=== PATIENT | male | born 1995 | race Caucasian/White ===

== ENCOUNTER 2020-09-08 13:16 | Emergency (ER) | payer MEDICAID ==
[~2020-09-08] VITALS: Ht 188 cm; Wt 116.0 kg
[~2020-09-08 13:16] MED LIST: ONDA4TAB12 PO
[2020-09-08] MEDS ORDERED: ondansetron/PF 4mg/2ml inj IV ONE (15:15)
[2020-09-08] MEDS ORDERED: normal saline 1000ml 1,000 ML IV ONE (15:15)
[2020-09-08] MEDS ORDERED: haloperidol lactate 5mg/ml inj IM ONE (15:20)
[2020-09-08 15:24] VITALS: BP 153/84
[2020-09-08] MEDS ORDERED: ONDA4TAB12 PO (15:51)
== END 2020-09-08 16:00 | disposition home or self-care (01) ==
LOC: ER 13:16
DX: F12.188 Cannabis abuse with other cannabis-induced disorder (principal); R11.2 Nausea with vomiting, unspecified; Z79.899 Other long term (current) drug therapy
CPT/HCPCS: 96372; 99283; J1630

== ENCOUNTER 2020-09-16 13:36 | Emergency (ER) | payer MEDICAID ==
[~2020-09-16] VITALS: Ht 188 cm; Wt 100.0 kg
[2020-09-16 13:57] VITALS: BP 161/90
[2020-09-16] MEDS ORDERED: PROC25SU31 RC (13:58)
--- NOTE | 2020-09-16 14:12 | NUR ---
PT SEEN AND TREATED BY MANUELA GOMES BEFORE NURSING ASSESSMENT DONE. PT DISCHARGED IN STABLE CONDIITON
== END 2020-09-16 14:24 | disposition home or self-care (01) ==
LOC: ER 13:36
DX: U07.1 COVID-19 (principal); F12.10 Cannabis abuse, uncomplicated; Z79.899 Other long term (current) drug therapy
CPT/HCPCS: 36415; 87635; 99283

== ENCOUNTER 2020-10-03 17:45 | Emergency (ER) | payer MEDICAID ==
[~2020-10-03] VITALS: Ht 188 cm; Wt 112.7 kg
[2020-10-03 17:47] VITALS: BP 135/82
--- NOTE | 2020-10-03 19:11 | NUR ---
lab informed me pt not in lobby
== END 2020-10-03 20:22 | disposition left against medical advice (07) ==
LOC: ER 17:45
DX: R11.10 Vomiting, unspecified (principal); Z53.21 Procedure and treatment not carried out due to patient leaving prior to being seen by health care provider

== ENCOUNTER 2020-10-06 08:13 | Emergency (ER) | payer MEDICAID ==
[~2020-10-06] VITALS: Ht 188 cm; Wt 104.5 kg
[2020-10-06 08:44] VITALS: BP 175/112
[2020-10-06] MEDS ORDERED: haloperidol lactate 5mg/ml inj IM ONE (08:55)
[2020-10-06] MEDS ORDERED: ondansetron 4mg rapidly disintigrating tab PO ONE (08:55)
[2020-10-06] MEDS ORDERED: proCHLORperazine 10 MG/2 ml inj IM ONE (08:55)
[2020-10-06 09:11] LABS: BASOPHILS % (AUTO) 0.4 % (0-1); EOSINOPHILS % (AUTO) 0.1 % (0-6); HEMATOCRIT 44.9 % (42.0-52.0); HEMOGLOBIN 15.4 g/dl (14.0-17.9); LYMPHOCYTES # (AUTO) 0.8 X10'3 (1.1-4.8); LYMPHOCYTES % (AUTO) 12.4 % (21-51); MEAN CORPUSCULAR HEMOGLOBIN 30.4 PG (27.0-31.0); MEAN CORPUSCULAR HGB CONC 34.2 g/dL (33.0-36.5); MEAN CORPUSCULAR VOLUME 88.9 FL (78-98); MEAN PLATELET VOLUME 9.1 FL (7.4-10.4); MONOCYTES # (AUTO) 0.3 X10'3 (0-0.9); MONOCYTES % (AUTO) 4.8 % (2-12); NEUTROPHILS # (AUTO) 5.4 X10'3 (1.8-7.7); NEUTROPHILS % (AUTO) 82.3 % (42-75); PLATELET COUNT 191 X10'3 (140-440); RED BLOOD COUNT 5.05 X10'6 (4.70-6.10); RED CELL DISTRIBUTION WIDTH 13.2 % (11.5-14.5); WHITE BLOOD COUNT 6.6 X10'3 (4.5-11.0)
[2020-10-06 09:12] LABS: CLARITY,URINE SLIGHTLY CLOUDY (Clear); COLOR,URINE YELLOW (Yellow); GLUCOSE, URINE NEGATIVE (Neg); KETONES,URINE NEGATIVE (Neg); LEUKOCYTE ESTERASE ,URINE NEGATIVE (Neg); NITRITES, URINE NEGATIVE (Neg); OCCULT BLOOD,URINE NEGATIVE (Neg); PROTEIN,URINE TRACE mg/dl (Neg)
[2020-10-06 09:16] LABS: UA COLLECTION TYPE CLN CATCH MIDSTREAM
[2020-10-06 09:19] LABS: ALANINE AMINOTRANSFERASE 40 U/L (12-78); ALBUMIN 4.4 G/DL (3.4-5.0); ALBUMIN/GLOBULIN RATIO 1.2 (1.1-1.5); ALKALINE PHOSPHATASE 101 IU/L (46-116); ANION GAP 9 (8-16); ASPARTATE AMINO TRANSFERASE 22 U/L (10-37); BILIRUBIN,TOTAL 0.8 MG/DL (0.1-1.0); BLOOD UREA NITROGEN 11 MG/DL (7-18); BUN/CREATININE RATIO 12.4 (5.4-32.0); CHLORIDE 104 MMOL/L (99-107); CREATININE 0.89 MG/DL (0.60-1.10); GLUCOSE 119 MG/DL (70-104); LIPASE 53 U/L (73-393); POTASSIUM 3.7 MMOL/L (3.5-5.1); SODIUM 140 MMOL/L (135-145); eGFR > 90 ML/MIN
[2020-10-06 09:19] LABS: MUCUS STRANDS MANY /LPF (Neg); SQUAMOUS EPITHELIAL CELL,UR FEW /LPF (FEW)
[2020-10-06 09:22] LABS: BACTERIA,URINE FEW /HPF (Neg); RBC,URINE 0-2 /HPF (0-2); SPERM MANY /HPF (NEGATIVE); WBC,URINE 0-4 /HPF (0-4)
== END 2020-10-06 09:32 | disposition home or self-care (01) ==
LOC: ER 08:13
DX: R11.2 Nausea with vomiting, unspecified (principal); F12.90 Cannabis use, unspecified, uncomplicated; Z79.899 Other long term (current) drug therapy
CPT/HCPCS: 36415; 80053; 81001; 83690; 85025; 96372; 99284; J0780; J1630

== ENCOUNTER 2021-01-12 18:45 | Emergency (ER) | payer MEDICAID ==
[~2021-01-12] VITALS: Ht 188 cm; Wt 111.5 kg
[2021-01-12 18:55] VITALS: BP 154/95
[2021-01-12] MEDS ORDERED: haloperidol lactate 5mg/ml inj IM ONE (19:15)
[2021-01-12] MEDS ORDERED: diphenhydrAMINE 50 mg/ml inj IV ONE (19:15)
[2021-01-12] MEDS ORDERED: normal saline 1000ML IV soln IVB ONE (19:15)
[2021-01-12] MEDS ORDERED: proCHLORperazine 10 MG/2 ml inj IM ONE (19:15)
[2021-01-12 19:33] LABS: BASOPHILS % (AUTO) 0 % (0-1); EOSINOPHILS % (AUTO) 0 % (0-6); HEMATOCRIT 44.6 % (42.0-52.0); HEMOGLOBIN 15.2 g/dl (14.0-17.9); LYMPHOCYTES # (AUTO) 0.7 X10'3 (1.1-4.8); LYMPHOCYTES % (AUTO) 5.2 % (21-51); MEAN CORPUSCULAR HEMOGLOBIN 29.6 PG (27.0-31.0); MEAN CORPUSCULAR HGB CONC 34.1 g/dL (33.0-36.5); MEAN CORPUSCULAR VOLUME 86.8 FL (78-98); MEAN PLATELET VOLUME 10.2 FL (7.4-10.4); MONOCYTES # (AUTO) 0.6 X10'3 (0-0.9); MONOCYTES % (AUTO) 4.7 % (2-12); NEUTROPHILS # (AUTO) 12.3 X10'3 (1.8-7.7); NEUTROPHILS % (AUTO) 90.1 % (42-75); PLATELET COUNT 205 X10'3 (140-440); RED BLOOD COUNT 5.14 X10'6 (4.70-6.10); WHITE BLOOD COUNT 13.7 X10'3 (4.5-11.0)
[2021-01-12 19:36] LABS: ALANINE AMINOTRANSFERASE 40 U/L (12-78); ALBUMIN 4.9 G/DL (3.4-5.0); ALBUMIN/GLOBULIN RATIO 1.4 (1.1-1.5); ALKALINE PHOSPHATASE 117 IU/L (46-116); ANION GAP 16 (8-16); ASPARTATE AMINO TRANSFERASE 26 U/L (10-37); BILIRUBIN,TOTAL 1.3 MG/DL (0.1-1.0); BLOOD UREA NITROGEN 17 MG/DL (7-18); BUN/CREATININE RATIO 16.5 (5.4-32.0); CALCIUM 9.5 MG/DL (8.5-10.1); CHLORIDE 100 MMOL/L (99-107); CREATININE 1.03 MG/DL (0.60-1.10); GLUCOSE 143 MG/DL (70-104); LIPASE < 50 U/L (73-393); POTASSIUM 3.3 MMOL/L (3.5-5.1); SODIUM 137 MMOL/L (135-145); TOTAL CARBON DIOXIDE 20.8 MMOL/L (24-32); TOTAL PROTEIN 8.4 G/DL (6.4-8.2); eGFR 87 ML/MIN
[2021-01-12] MEDS ORDERED: ONDA4TAB6 PO (19:40)
== END 2021-01-12 19:51 | disposition home or self-care (01) ==
LOC: ER 18:45
DX: R11.10 Vomiting, unspecified (principal); F12.90 Cannabis use, unspecified, uncomplicated; Z79.899 Other long term (current) drug therapy
CPT/HCPCS: 36415; 80053; 83690; 85025; 96372; 96374; 99284; J0780; J1200; J1630; J7030

== ENCOUNTER 2021-01-14 14:12 | Emergency (ER) | payer MEDICAID ==
[~2021-01-14] VITALS: Ht 188 cm; Wt 110.0 kg
[~2021-01-14 14:12] MED LIST changes: +ONDA4TAB6 PO
--- NOTE | 2021-01-14 15:01 | NUR ---
CALLED NOT IN LOBBY
[2021-01-14] MEDS ORDERED: pantoprazole 40 MG vial IV ONE (15:25)
[2021-01-14] MEDS ORDERED: proCHLORperazine 10 MG/2 ml inj IV ONE (15:25)
[2021-01-14] MEDS ORDERED: normal saline 1000ML IV soln IVB ONE (15:25)
[2021-01-14 15:37] LABS: BASOPHILS % (AUTO) 0.2 % (0-1); EOSINOPHILS % (AUTO) 0.1 % (0-6); HEMOGLOBIN 15.6 g/dl (14.0-17.9); LYMPHOCYTES % (AUTO) 10.9 % (21-51); MEAN CORPUSCULAR HEMOGLOBIN 29.9 PG (27.0-31.0); MEAN CORPUSCULAR HGB CONC 33.8 g/dL (33.0-36.5); MEAN CORPUSCULAR VOLUME 88.4 FL (78-98); MEAN PLATELET VOLUME 9.5 FL (7.4-10.4); MONOCYTES # (AUTO) 0.4 X10'3 (0-0.9); MONOCYTES % (AUTO) 4.9 % (2-12); NEUTROPHILS # (AUTO) 7.3 X10'3 (1.8-7.7); NEUTROPHILS % (AUTO) 83.9 % (42-75); PLATELET COUNT 208 X10'3 (140-440); RED BLOOD COUNT 5.21 X10'6 (4.70-6.10); RED CELL DISTRIBUTION WIDTH 13.1 % (11.5-14.5); WHITE BLOOD COUNT 8.7 X10'3 (4.5-11.0)
[2021-01-14 15:56] LABS: ALANINE AMINOTRANSFERASE 53 U/L (12-78); ALBUMIN 4.9 G/DL (3.4-5.0); ALBUMIN/GLOBULIN RATIO 1.3 (1.1-1.5); ALKALINE PHOSPHATASE 106 IU/L (46-116); ANION GAP 12 (8-16); ASPARTATE AMINO TRANSFERASE 34 U/L (10-37); BILIRUBIN,TOTAL 0.9 MG/DL (0.1-1.0); BLOOD UREA NITROGEN 12 MG/DL (7-18); BUN/CREATININE RATIO 13.5 (5.4-32.0); CALCIUM 9.3 MG/DL (8.5-10.1); CHLORIDE 102 MMOL/L (99-107); CREATININE 0.89 MG/DL (0.60-1.10); GLUCOSE 126 MG/DL (70-104); POTASSIUM 3.3 MMOL/L (3.5-5.1); SODIUM 140 MMOL/L (135-145); TOTAL CARBON DIOXIDE 25.9 MMOL/L (24-32); TOTAL PROTEIN 8.6 G/DL (6.4-8.2); eGFR > 90 ML/MIN
[2021-01-14] MEDS ORDERED: potassium Cl 10 mEq/100mL bag IV ONE (16:00)
[2021-01-14] MEDS ORDERED: potassium chloride 10mEq ER tablet PO ONE (16:20)
[2021-01-14] MEDS ORDERED: PROC25SU31 RC (16:39)
[2021-01-14] MEDS ORDERED: PANT-47 PO (16:39)
[2021-01-14 16:47] VITALS: BP 101/89
== END 2021-01-14 16:48 | disposition home or self-care (01) ==
LOC: ER 14:13
DX: R11.10 Vomiting, unspecified (principal); F12.90 Cannabis use, unspecified, uncomplicated; Z59.0 Homelessness; Z79.899 Other long term (current) drug therapy
CPT/HCPCS: 36415; 80053; 85025; 96361; 96374; 96375; 99284; C9113; J0780; J7030

== ENCOUNTER 2021-05-12 11:28 | Emergency (ER) | payer MEDICAID ==
[~2021-05-12] VITALS: Ht 188 cm; Wt 76.5 kg
[~2021-05-12 11:28] MED LIST changes: +PANT-47 PO
[2021-05-12] MEDS ORDERED: famotidine/PF 10 mg/ml inj IV ONE (13:10)
[2021-05-12] MEDS ORDERED: LORazepam 2 mg/ml vial IV ONE (13:10)
[2021-05-12] MEDS ORDERED: haloperidol lactate 5mg/ml inj IM ONE (13:10)
[2021-05-12] MEDS ORDERED: normal saline 1000ML IV soln IVB ONE (13:10)
[2021-05-12 13:40] LABS: BASOPHILS % (AUTO) 0.3 % (0-1); EOSINOPHILS % (AUTO) 0 % (0-6); HEMATOCRIT 53.6 % (42.0-52.0); LYMPHOCYTES # (AUTO) 1.8 X10'3 (1.1-4.8); LYMPHOCYTES % (AUTO) 13.5 % (21-51); MEAN CORPUSCULAR HEMOGLOBIN 29.5 PG (27.0-31.0); MEAN CORPUSCULAR VOLUME 84.3 FL (78-98); MEAN PLATELET VOLUME 10.4 FL (7.4-10.4); MONOCYTES # (AUTO) 1.7 X10'3 (0-0.9); MONOCYTES % (AUTO) 12.9 % (2-12); NEUTROPHILS # (AUTO) 9.8 X10'3 (1.8-7.7); NEUTROPHILS % (AUTO) 73.3 % (42-75); PLATELET COUNT 298 X10'3 (140-440); RED BLOOD COUNT 6.35 X10'6 (4.70-6.10); RED CELL DISTRIBUTION WIDTH 13.1 % (11.5-14.5); WHITE BLOOD COUNT 13.4 X10'3 (4.5-11.0)
[2021-05-12 13:43] LABS: HEMOGLOBIN 18.8 g/dl (14.0-17.9)
[2021-05-12 13:46] LABS: ALANINE AMINOTRANSFERASE 51 U/L (12-78); ALBUMIN 5.7 G/DL (3.4-5.0); ALBUMIN/GLOBULIN RATIO 1.3 (1.1-1.5); ALKALINE PHOSPHATASE 112 IU/L (46-116); ANION GAP 17 (8-16); ASPARTATE AMINO TRANSFERASE 35 U/L (10-37); BLOOD UREA NITROGEN 54 MG/DL (7-18); BUN/CREATININE RATIO 19.9 (5.4-32.0); CALCIUM 9.9 MG/DL (8.5-10.1); CHLORIDE 89 MMOL/L (99-107); CREATININE 2.72 MG/DL (0.60-1.10); GLUCOSE 145 MG/DL (70-104); POTASSIUM 3.1 MMOL/L (3.5-5.1); SODIUM 130 MMOL/L (135-145); TOTAL CARBON DIOXIDE 24.2 MMOL/L (24-32); TOTAL PROTEIN 10.1 G/DL (6.4-8.2); eGFR 28 ML/MIN
--- NOTE | 2021-05-12 13:46 | NUR ---
lab called. hgb 18.8 and hct 53.6. reported to [facility]
[2021-05-12] MEDS ORDERED: potassium Cl 20 mEq SR tablet PO STA (13:56)
[2021-05-12] MEDS ORDERED: potassium Cl 10 mEq/100mL bag IV ONE (14:00)
[2021-05-12 14:08] LABS: MAGNESIUM 2.3 MG/DL (1.5-2.4)
[2021-05-12] MEDS ORDERED: potassium Cl 20mEq in NS 1,000 ML IV SCH (15:25)
[2021-05-12] MEDS ORDERED: HYDROcodone/acetaminophen 5mg/325mg tablet PO PRN (15:25)
[2021-05-12] MEDS ORDERED: mag hydrox/Alum hydrox/simeth 30ml oral suspension PO PRN (15:25)
[2021-05-12] MEDS ORDERED: proCHLORperazine 10 MG/2 ml inj IV PRN (15:25)
[2021-05-12] MEDS ORDERED: magnesium hydroxide 30ml (MOM) UD suspension PO PRN (15:25)
[2021-05-12] MEDS ORDERED: HYDROcodone/acetaminophen 10/325mg tab PO PRN (15:25)
[2021-05-12] MEDS ORDERED: ondansetron/PF 4mg/2ml inj IV PRN (15:25)
[2021-05-12] MEDS ORDERED: acetaminophen 325mg tablet PO PRN ×2 (15:25)
[2021-05-12 15:44] VITALS: BP 146/70
[2021-05-12] MEDS ORDERED: NO HOME MEDS (16:02)
[2021-05-12] MEDS ORDERED: docusate sod 100mg capsule PO SCH (20:00)
== END 2021-05-12 18:25 | disposition left against medical advice (07) ==
LOC: ER 11:28 → UNDOADMOB 15:22 → ED HOLD 15:22 → UNDODISOB 18:27
DX: N17.9 Acute kidney failure, unspecified (principal); R11.15 Cyclical vomiting syndrome unrelated to migraine; E86.0 Dehydration; E87.6 Hypokalemia; F12.188 Cannabis abuse with other cannabis-induced disorder; Z79.899 Other long term (current) drug therapy
CPT/HCPCS: 36415; 80053; 83735; 85025; 93005; 96372; 96374; 96375; 99284; J1630; J2060; J3480; J3490; J7030; 96361; G0378